=== PATIENT | male | born 1935 | race Caucasian/White ===

== ENCOUNTER 2022-05-25 08:38 | Inpatient (IN) ==
--- NOTE | 2022-05-07 09:54 | PAT Medication Instructions ---
Medication Instructions Date of Service May 07, 2022 Home Medications clopidogrel 75 mg tablet (Plavix) 75 mg PO QAM ramipril 10 mg capsule 10 mg PO QAM simvastatin 80 mg tablet 80 mg PO QAM ASK your prescriber and surgeon clopidogrel 75 mg tablet (Plavix) 75 mg PO QAM DO NOT take the morning of surgery ramipril 10 mg capsule 10 mg PO QAM Take morning of surgery With a small sip of water, OTHERWISE NOTHING TO EAT OR DRINK AFTER MIDNIGHT: simvastatin 80 mg tablet 80 mg PO QAM Other Notes If you have any questions please call us at [phone] or [phone] or [phone] or [phone]
--- NOTE | 2022-05-19 10:04 | Anesthesiology Consultation ---
Date of Service May 19, 2022 Assessment & Plan (1) Encounter for pre-operative examination: - COVID screening: Per assessment on 05/19: No known COVID-19 positive contacts or current COVID-19 related symptoms. Travel screen negative. Patient vaccinated. At surgeon discretion if preop Covid testing being done. - Neurology office visit (04/07/22): "Painless monocular vision loss to the right eye consistent with amaurosis fugax. Patient has significant bilateral carotid stenosis, right greater than left as depicted on CT angiography. I suspect the right carotid has been symptomatic. (He does have an audible bruit on the left.) Recently completed brain MRI reveals a small punctate infarct within the right occipital lobe, watershed between the right occipital and right MCA. This small acute to subacute appearing ischemic infarct would not explain his vision loss to the right eye, however. Patient has been taking Plavix and simvastatin, he should continue with these medications at the current dosages. He is also on ramipril and may continue with this medication as well. I have requested a fasting lipid panel as well. Patient should complete the requested cardiac Holter monitoring. I have referred him to Dr. Silverman, for an opinion regarding carotid endarterectomy. He does appear to have significant bilateral disease although the right carotid stenosis would be considered symptomatic recently. Looks like he has an appointment scheduled with Dr. Delgado tomorrow, cardiology, vascular. He may keep this appointment. Return to clinic in 3 months, may be seen by myself or an SANDRA at that time." Holter done 04/02-04/04/22 was unremarkable. Cardiovascular appt mentioned by PCP was when patient was initially scheduled [place] Shayy Fleming [place] [facility] [place]. [place]t was cancelled and patient was instead sent to Dr. Silverman for further vascular evaluation- resulting in setting up of this surgery* - Vascular office visit (04/15/22): "CTA in March demonstrated bilateral significant carotid artery stenosis more on the right than the left. He does have also evidence of watershed infarcts at right occipital lobe via brain MRI. Echo from March demonstrated an EF of 65 to 75% with hypokinesis to akinesis of the mid anterior septum. No LVH, trace of aortic regurgitation, mild mitral regurge, normal estimated right ventricular systolic pressure.. He is presenting with symptomatic (amaurosis fugax) severe right carotid disease. We extensively discussed the risks and benefits of proceeding with right carotid artery endarterectomy" Pt scheduled for right transcarotid artery revascularization 05/25/22* - Plavix instructions: Per patient, he was advised by surgeon to continue perioperative Chart Review Chart Review: Acceptable Risk for Surgery and Patient seen in Pre Admission Testing Teaching & Discussion Pre-Anesthesia Teaching/Discussion Notes: Instructed NPO after midnight before surgery,except medications with 15 cc of water. Medication instructions provided according to the PAT guidelines. History Surgery Operation Date: 05/25/22 10:50 Proposed Procedures p Right Transcarotid Artery Revascularization - Jose Alfredo Silverman MD Height/Weight Height: 5 ft 9 in Weight: 78 kg Allergies Allergy/AdvReac Type Severity Reaction Status Date / Time No Known Allergies Allergy Verified 05/06/22 11:56 Medications Home Medications Medication Instructions Recorded Confirmed Last Taken clopidogrel 75 mg tablet (Plavix) 75 mg PO QAM 05/06/22 05/06/22 Unknown ramipril 10 mg capsule 10 mg PO QAM 05/06/22 05/06/22 Unknown simvastatin 80 mg tablet 80 mg PO QAM 05/06/22 05/06/22 Unknown Past Medical History Medical History Amaurosis fugax of right eye "Painless monocular vision loss to the right eye consistent with amaurosis fugax" per 04/07/22 neuro office visit note Bilateral carotid artery stenosis Per head/neck CTA (03/31/22), hemodynamically significant stenosis in the right internal carotid artery its origin. There is hemodynamically significant stenosis in the left common carotid artery at the carotid bulb. There is likely hemodynamically significant stenosis in the origin of the right vertebral artery. CAD (coronary artery disease) Stents x2 (approximately 2009) Dysphagia Food/solids - chronic (no recent changes) Hypertension Recent meds started by PCP Occipital stroke Summer 2021 (reason for upcoming surgery) Brain MRI reveals a small punctate infarct within the right occipital lobe, watershed between the right occipital and right MCA. Exercise / Class Metabolic Activity II 4-5 Yardwork/Stairs/Walk up hill (one FS (no CP, no SOB)) Past Family History Family History Other No family history of adverse response to anesthesia Past Surgical History Surgical History History of cardiac cath Approximately 2009 > no stents History of colonoscopy History of esophagogastroduodenoscopy (EGD) + foreign body removal History of heart artery stent Stents x2 (approximately 2009) Past Anesthesia History No Hx of Anesthesia Complications and No Family Hx of Anesthesia Complications History of PONV No Hx of PONV and No Hx of Motion Sickness Social History Smoking Status: Never smoker Do You Dip or Chew Tobacco: No Hx Alcohol Use: Yes Alcohol type: beer alcohol intake frequency: 0-2 drinks per day (1 beer/day) Hx Substance Use: No substance use type: does not use Review of Systems Patient denies chest pain, shortness of breath, dyspnea on exertion, fever, chills, cough, wheezing, palpitations. Physical Exam Vital Signs VITALS BP 113/62 P 53 TEMP WNL SP02 97%RA RESP 18 PHYSICAL Mildly decreased cervical extension range of motion. Full TMJ range of motion. TMD 2 finger breaths (small chin) Mallampati Score 3 Dentition: full upper plate Lungs: clear throughout to auscultation Cardiac: regular rate and rhythm, no murmurs noted Spine: normal Carotid arteries: b/l carotid bruit Extremities: no edema Lab Results Anesthesia Preop Results Results Anesthesia Widget: WBC 6.58 K/ul (4.8-10.8) 05/19/22 Hgb 15.6 g/dl (14.0-18.0) 05/19/22 Hct 47.3 % (40.1-51.0) 05/19/22 Plt 202 K/uL (130-400) 05/19/22 Na 140 mmol/L (136-145) 05/19/22 K 4.2 mmol/L (3.5-5.1) 05/19/22 Cl 109 mmol/L (98-107) H 05/19/22 CO2 25 mmol/L (21-32) 05/19/22 BUN 20 mg/dl (6-23) 05/19/22 Creat 1.03 mg/dl (0.6-1.4) 05/19/22 Glucose Level 104 mg/dl (70-99(Fasting)) H 05/19/22 PT 11.1 Seconds (9.0-12.0) 05/19/22 PTT 29.3 Seconds (21.0-31.0) 05/19/22 INR 1.0 (0.9-1.1) 05/19/22 Blood Type A Positive 05/19/22 Antibody Screen NEGATIVE 05/19/22 Testing Electrocardiogram Date: 05/19/22 SB with sinus arrhythmia at 54bpm. unconfirmed report. Chest X-Ray Date: 05/19/22 FINDINGS: Cardiomediastinal and hilar silhouettes are within normal limits. No pneumothorax, pleural effusion, airspace consolidation or overt pulmonary edema. Hyperinflation with mild diaphragmatic flattening. Bridging syndesmophytes throughout the spine suggestive of ankylosing spondylosis. Bones appear grossly intact. IMPRESSION: No acute process. Echocardiogram Date: 04/02/22 EF 65-70%. HK to akinesis of the mid anteroseptum. No LVH. Mild MR. Normal estimated RVSP. Type I DD. Other Testing Head/Neck CTA (03/31/22) No acute intracranial hemorrhage, evidence of acute territorial infarction, or other acute intracranial disease process. Hemodynamically significant stenosis in the right internal carotid artery its origin. There is hemodynamically significant stenosis in the left common carotid artery at the carotid bulb. There is likely hemodynamically significant stenosis in the origin of the right vertebral artery. No occlusion, hemodynamically significant stenosis, or dissection in the major intracranial arteries. Brain MRI (04/06/22) Punctate focus of slightly increased diffusion-weighted signal within the right occipital lobe may be artifactual or present a tiny acute versus subacute in farct. Age-related involutional changes with chronic microvascular ischemic disease. 48 hour holter (04/02-04/04/22) NSR throughout. Rare PACs. Frequent PVCs (6%). One, 9 beat run of an SVT. No a. fib or flutter. COVID-19 Risk Screen Screening Information COVID-19 Screen Date: 05/19/22 Exposure 21 Days Family/Household +COVID Last 21 Days: No Exposure 10 Days Any COVID Exposure Last 10 Days: No Symptoms Last 10 Days Experienced COVID Sx Last 10 Days: No + COVID 0-90 Days COVID + in Last 0-90 Days: No
--- NOTE | 2022-05-25 07:28 | History & Physical Report ---
Date of Service May 25, 2022 History of Present Illness Primary Care Provider: Huseyin Devine DO Name: LILY WADE Patient Number: [id number] : 1935 Date of Service: 04/15/2022 Dear , I had the pleasure today of meeting Mr. Wade at the vascular surgery clinic with Dr. Silverman. As you are aware, he is a very pleasant 86-year-old male with history of hypertension, hyperlipidemia and CAD (status post 2 stents more than 10 years ago). He is for evaluation of carotid artery stenosis. Approximately 3 weeks ago, he noticed a black curtain over his right eye. At that time, he did not have any weakness or numbness or slurred speech. He does still have this black curtain on the right eye and he can only the lower half of the visual field by the right eye. He was worked up for stroke which came back involved with this severe bilateral carotid artery disease the CTA that is worse on the right side. 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 He is on Plavix. He is a non-smoker. He recently moved from [place] to the area few months ago but he has been back and forth. He is extremely active and lives by himself. He denies shortness of breath, claudication or rest pain. REVIEW OF SYSTEMS: 14 point ROS was performed, pertinent positive and negative aspects were mentioned in the HPI PAST MEDICAL HISTORY: CAD (2 stents >10 yrs ago), hypertension, hyperlipidemia, carotid stenosis, right PAST SURGICAL HISTORY: Coronary stents, colonoscopy SOCIAL HISTORY: Non-smoker, recently moved to [place] from [place], lives alone. FAMILY HISTORY: Noncontributory MEDICATIONS: Plavix, ramipril, simvastatin ALLERGIES: NKA PHYSICAL EXAM: VITALS: Heart rate 81, BP 108/52, satting 98% on room air GENERAL: Sitting comfortably in chair no acute distress CARDS: Regular PULM: Nonlabored breathing on room air ABDOMEN: Soft EXTREMITIES: Warm, well-perfused. 2+ radial pulse NEURO: cranial nerves II through XII are grossly intact. 5 out of 5 muscle strength in all muscle groups, And sensory function intact. He does endorse double vision at the central field. IMAGING: CTA in March demonstrated bilateral significant carotid artery stenosis more on the right than the left. He does have also evidence of watershed infarcts at right occipital lobe via Brain MRI. Echo from March demonstrated an EF of 65 to 75% with hypokinesis to akinesis of the mid anterior septum. No LVH, trace of aortic regurgitation, mild mitral regurge, normal estimated right ventricular systolic pressure. ASSESSMENT AND PLAN: Mr. Wade is an 86-year-old male with history of CAD, hypertension and hyperlipidemia. He is a presenting with symptomatic (amaurosis fugax) severe right carotid disease. We extensively discussed the risks and benefits of proceeding with right TCAR procedure. The patient was consented for the procedure. Thank you for entrusting us with the care of this patient. Please do not hesitate to call us with questions or concerns. I saw and evaluated the patient. Discussed with the resident and agree with the resident's findings and plan as documented in the resident's note. Allergies Allergy/AdvReac Type Severity Reaction Status Date / Time No Known Allergies Allergy Verified 05/06/22 11:56 Home Medications Medication Instructions Recorded Confirmed Type clopidogrel 75 mg tablet (Plavix) 75 mg PO QAM 05/06/22 05/06/22 History ramipril 10 mg capsule 10 mg PO QAM 05/06/22 05/06/22 History simvastatin 80 mg tablet 80 mg PO QAM 05/06/22 05/06/22 History Past Med/Surg History Medical History Amaurosis fugax of right eye "Painless monocular vision loss to the right eye consistent with amaurosis fugax" per 04/07/22 neuro office visit note Bilateral carotid artery stenosis Per head/neck CTA (03/31/22), hemodynamically significant stenosis in the right internal carotid artery its origin. There is hemodynamically significant stenosis in the left common carotid artery at the carotid bulb. There is likely hemodynamically significant stenosis in the origin of the right vertebral artery. CAD (coronary artery disease) Stents x2 (approximately 2009) Dysphagia Food/solids - chronic (no recent changes) Hypertension Recent meds started by PCP Occipital stroke Summer 2021 (reason for upcoming surgery) Brain MRI reveals a small punctate infarct within the right occipital lobe, watershed between the right occipital and right MCA. Surgical History History of cardiac cath Approximately 2009 > no stents History of colonoscopy History of esophagogastroduodenoscopy (EGD) + foreign body removal History of heart artery stent Stents x2 (approximately 2009) Family History Other No family history of adverse response to anesthesia Social History Smoking Status: Never smoker Second Hand Exposure: No; Hx Alcohol Use: Yes Alcohol type: beer Alcohol Intake Frequency Comment: 1 beer a day Hx Substance Use: No Preferred Language: Icelandic Communication Ability: Effective Visual Impairment: Limited Hearing Ability: Use of Hearing Aid Certified Genetic Counselor Required: No Beliefs That Will Affect Care: None marital status: / Current Living Situation: Alone current occupational status: retired How many Children do You have: 1 Feels Safe at Home: Yes Assistive Devices: Denture - Upper, Glasses and Hearing Aid - Bilateral
[~2022-05-25 08:38] MED LIST: ALBUMIN HUMAN 5% 12.5 GM/250 ML VIAL IV ONE; LACTATED RINGER'S 1,000 ML IV SCH; SUGAMMADEX SODIUM 200 MG/2 ML VIAL IV ONE; ceFAZolin 1000MG 1,000 MG/7.5 ML SYR IV SCH
[2022-05-25] MEDS ORDERED: LIDOCAINE 2% MPF LOCAL 5 ML VIAL INFIL ONE ×2 (08:41→09:39)
[2022-05-25] MEDS ORDERED: fentaNYL citrate 100 MCG/2 ML VIAL ONE ×2 (09:36→12:25)
[2022-05-25] MEDS ORDERED: MIDAZOLAM HCL 1 MG/ML 2ML VIAL ONE (09:36)
[2022-05-25] MEDS ORDERED: PHENYLEPHRINE HCL 10 MG/ML VIAL ONE (09:38)
[2022-05-25] MEDS ORDERED: ePHEDrine sulfate 50 MG/ML AMP ONE (09:38)
[2022-05-25] MEDS ORDERED: PROPOFOL IV EMULSION 10 MG/ML 20 ML VIAL IV ONE (09:39)
[2022-05-25] MEDS ORDERED: ROCURONIUM BROMIDE 10 MG/ML 5 ML VIAL IV ONE ×2 (09:39→12:25)
[2022-05-25] MEDS ORDERED: GLYCOPYRROLATE 0.2 MG/ML VIAL ONE (09:39)
[2022-05-25] MEDS ORDERED: DEXAMETHASONE SOD INJ 4 MG/ML VIAL ONE (09:39)
[2022-05-25] MEDS ORDERED: ONDANSETRON INJ 2 MG/ML 2 ML VIAL ONE (09:39)
[2022-05-25] MEDS ORDERED: ATROPINE SULFATE 0.1 MG/ML 10ML SYR IV PRN (09:47)
[2022-05-25] MEDS ORDERED: ePHEDrine sulfate 50 MG/ML AMP IV PRN (09:47)
[2022-05-25] MEDS ORDERED: ONDANSETRON INJ 2 MG/ML 2 ML VIAL IV PRN (09:47)
[2022-05-25] MEDS ORDERED: LIDOCAINE 1% LOCAL 20 ML VIAL ONE (10:14)
--- NOTE | 2022-05-25 10:25 | History & Physical Bridge Note ---
Date of Service May 25, 2022 History & Physical Bridge Note Patient for trans carotid artery revascularization procedure of the right carotid. I have discussed the risks options and benefits of the procedure with the patient. The patient understands the risks options and benefits and agrees to the procedure. I have examined the patient, reviewed the History & Physical and in the interval since the performance of the History & Physical I have noted the following changes of clinical significance: no changes noted
[2022-05-25] MEDS ORDERED: HEPARIN SOD (PORCINE) 1000 UNIT/ML ONE (10:32)
[2022-05-25] MEDS ORDERED: VISIPAQUE IV ONE (12:25)
[2022-05-25] MEDS ORDERED: PROTAMINE SULFATE 10 MG/ML 5 ML VIAL ONE (12:27)
--- NOTE | 2022-05-25 12:38 | Post Operative Brief Note ---
Immediate Post Op Note v1 Date of Surgery May 25, 2022 Pre & Post Diagnosis Operation Date: 05/25/22 10:50 Pre-Op Diagnosis: Right Internal Carotid Artery Stenosis Post-Op Diagnosis: Right Internal Carotid Artery Stenosis I identified the patient and participated in the time-out.: Yes Procedure Operation Date: 05/25/22 10:50 Actual Procedures p Right Transcarotid Artery Revascularization(Right) - Jose Alfredo Silverman MD Surgeon Jose Alfredo Silverman MD Physician Practice Market Manager Laurie,PAC Estimated Blood Loss 50 Findings Consistent with Post-Op Diagnosis Anesthesia Type General Complications none Disposition Accompanied Patient To Recovery: No Disposition: Recovery Room
[2022-05-25] MEDS: fentaNYL citrate 100 MCG/2 ML VIAL IV PRN ×4 (13:13→14:17)
--- NOTE | 2022-05-25 14:22 | Anesthesiology Progress Note ---
Date of Service May 25, 2022 Anesthesia Post Procedure Vital Signs Vital Signs: Temp Pulse Pulse Resp BP Pulse Ox O2 Del Method 05/25/22 13:30 62 12 148/61 H 95 Room Air 05/25/22 13:20 65 12 147/62 H 95 Room Air 05/25/22 14:10 60 16 132/53 L 98 Room Air 05/25/22 14:00 70 14 144/59 H 96 Room Air 05/25/22 13:50 98.2 F 62 13 137/58 L 96 Room Air 05/25/22 13:40 62 12 149/65 H 95 Room Air 05/25/22 13:10 73 18 144/59 H 100 Oxymask 05/25/22 13:03 97.0 F L 76 18 140/65 100 Oxymask 05/25/22 09:25 97.7 F 68 20 129/73 97 Room Air O2 Flow Rate 05/25/22 13:30 05/25/22 13:20 05/25/22 14:10 05/25/22 14:00 05/25/22 13:50 05/25/22 13:40 05/25/22 13:10 5 05/25/22 13:03 5 05/25/22 09:25 Pain Intensity Right Chest: Pain Intensity: 4 Transfer of Care Handoff Completed per policy Notes Mental Status: alert / awake / arousable and participated in evaluation Patient Amnestic to Procedure: Yes Nausea / Vomiting: adequately controlled Pain: adequately controlled Airway Patency, RR, SpO2: stable & adequate BP & HR: stable & adequate Hydration State: stable & adequate Anesthetic Complications: no major complications apparent and Pt Satisfied with anesthetic care
[2022-05-25] MEDS ORDERED: oxyCODONE/ACETAMINOPHEN 5mg/325mg TAB PO PRN (15:09)
--- NOTE | 2022-05-25 15:42 | Billing Data ---
Date of Service May 25, 2022 Coding Level of Care Code 53497 Initial Inpt Care Lvl 2
--- NOTE | 2022-05-25 15:54 | Critical Care Consultation ---
Date of Consultation May 25, 2022 Assessment & Plan (1) Bilateral carotid artery stenosis: ICU Assessment and Plans Reason Critically Ill: 86-year-old male here with a PMHx significant for occipital stroke, b/l carotid artery stenosis, HLD, HTN, dysphagia, CAD stentx2 who presented to the hospital for right carotid artery stenosis TCAR with vascular surgery. Neuro - [facility] ICU: NEGATIVE Sedation: none Analgesia: Oxycodone 5mg q4hr PRN, morphine 2mg IV PRN q3rn for pain 1-5, morphine 4mg IV q3hr PRN for pain 6-10 Hx Occipital stroke -continue simvastatin 80mg Cardiac - s/p TCAR of right carotid artery -following with vascular surgery -maintain systolic BP above 120 -if blood pressure below that, consider gera synephrine CAD s/p stentx2 -continue enalapril 40mg -continue plavix 75mg Respiratory - No concerns at this time. GI - Dysphagia -Clear liquid heart healthy diet -patient may refuse solid medications RENAL/LYTES - No significant electrolyte derangement. Replace lytes as needed. - No concerns at this time. ENDO - No concerns at this time. HEME - Will monitor for any bleeds ID - -continue ancef 3 bags post TCAR procedure INTEGUMENTARY - -keep incision site clean dry intact LINES/IV ACCESS - PIVs intact. -LR 125mls/hr DVT PROPHYLAXIS - -continue plavix Thank you for allowing us to be part of this patient's care. Please refer to Dr. Rosenberg's documentation for any further recommendations. (2) CAD (coronary artery disease): (3) Hypertension: Supervising Physician Co-Signing Physician Notes Patient seen and examined with resident physician. Agree with assessment and plan as outlined above. Can likely be discharged home tomorrow. Will defer plan to vascular surgery. Critical care team is available should the need arise. Thank you for the consult. History of Present Illness Reason for Consultation: Post TCAR procedure Requesting Physician: Jose Alfredo Silverman MD Attending Physician: Narayan Rosenberg MD History of Present Illness 86yo Male with PMH occipital stroke and b/l carotid artery stenosis found 3 weeks ago, CAD with stentsx2 over 10 years ago, HLD, HTN and dysphagia presented to the hospital for scheduled right TCAR with vascular surgery. Patient states 3 weeks ago he felt a loss of vision in his right eye, like a curtain descended over the top half of his vision. He was sent to the hospital for a stroke work up, found to have an occipital stroke and b/l carotid artery stenosis. At this time post procedure he states he is feeling well, denies headache CP SOB, states he has intact movement sensation of all limbs. He states he does have a 5/10 pain in his neck. Patient has ongoing dysphagia usually eats a soft diet, states he has long periods of coughs when eating harder solids and is afraid of taking oral tablet pain medication for this reason. He states he is afraid of coughing so hard his stitches will open. Patient plans to avoid eating food tonight for this reason. He has not had a bowel movement in 1 day, usually has bowel movements every 2 days. He plans to have a second TCAR for his left carotid after this one heals, with an EGD planned afterwards for his dysphagia. Allergies Allergy/AdvReac Type Severity Reaction Status Date / Time No Known Allergies Allergy Verified 05/25/22 09:22 Home Medications Medication Instructions Recorded Confirmed Type clopidogrel 75 mg tablet (Plavix) 75 mg PO QAM 05/06/22 05/25/22 History ramipril 10 mg capsule 10 mg PO QAM 05/06/22 05/25/22 History simvastatin 80 mg tablet 80 mg PO QAM 05/06/22 05/25/22 History Patient History Medical History (Updated 05/25/22 @ 15:52 by Sol Duque DO) Amaurosis fugax of right eye "Painless monocular vision loss to the right eye consistent with amaurosis fugax" per 04/07/22 neuro office visit note Bilateral carotid artery stenosis Per head/neck CTA (03/31/22), hemodynamically significant stenosis in the right internal carotid artery its origin. There is hemodynamically significant stenosis in the left common carotid artery at the carotid bulb. There is likely hemodynamically significant stenosis in the origin of the right vertebral artery. CAD (coronary artery disease) Stents x2 (approximately 2009) Dysphagia Food/solids - chronic (no recent changes) Hypertension Recent meds started by PCP Occipital stroke Summer 2021 (reason for upcoming surgery) Brain MRI reveals a small punctate infarct within the right occipital lobe, watershed between the right occipital and right MCA. Surgical History History of cardiac cath Approximately 2009 > no stents History of colonoscopy History of esophagogastroduodenoscopy (EGD) + foreign body removal History of heart artery stent Stents x2 (approximately 2009) Family History Other No family history of adverse response to anesthesia Social History Smoking Status: Never smoker Second Hand Exposure: No; Do You Dip or Chew Tobacco: No; Tobacco Cessation Education Requested by Patient: No Hx Alcohol Use: Yes Alcohol type: beer Alcohol Intake Frequency Comment: 1 beer a day Hx Substance Use: No Preferred Language: Bulgarian Communication Ability: Effective Visual Impairment: Limited Hearing Ability: Use of Hearing Aid Judge Required: No Beliefs That Will Affect Care: None marital status: / Current Living Situation: Alone current occupational status: retired How many Children do You have: 1 Other Information That Helps Us Care for You: No Feels Safe at Home: Yes Safety Concerns: Feels Safe At This Time Assistive Devices: Denture - Upper, Glasses and Hearing Aid - Bilateral Review of Systems Review of Systems: Positive sore throat, constipation Negative fever chills Negative headache dizziness Negative chest pain palpitations SOB Negative nausea vomitting diarrhea Negative numbness tingling rash swelling weakness loss of sensation Physical Exam Constitutional: WD/WN, vitals as above Eyes: PERRL, conjunctivae normal, anicteric sclerae ENMT: external ear and nose normal, oropharynx normal Neck: trachea midline, no thyromegaly Respiratory: normal respiratory effort, lungs clear to auscultation Cardiovascular: RRR, no murmur, no edema Chest (Breasts): Additional Comments: incision noted around right clavicle, clean dry intact Gastrointestinal (Abdomen): normal bowel sounds, soft, nontender, no hepatosplenomegaly Skin: no rashes, warm and dry Neurologic: CN's II-XI intact bilaterally Psychiatric: A+Ox3, euthymic affect Results & Data Results & Data ([facility]) Vital Signs (Past 12 Hours) Vital Signs Temp Pulse Pulse Resp BP Pulse Ox O2 Del Method 05/25/22 13:30 62 12 148/61 H 95 Room Air 05/25/22 13:20 65 12 147/62 H 95 Room Air 05/25/22 14:30 56 L 14 132/52 L 98 Room Air 05/25/22 14:20 36.4 C L 66 21 131/25 L 98 Room Air 05/25/22 14:10 60 16 132/53 L 98 Room Air 05/25/22 14:00 70 14 144/59 H 96 Room Air 05/25/22 13:50 36.8 C 62 13 137/58 L 96 Room Air 05/25/22 13:40 62 12 149/65 H 95 Room Air 05/25/22 13:10 73 18 144/59 H 100 Oxymask 05/25/22 13:03 36.1 C L 76 18 140/65 100 Oxymask 05/25/22 09:25 36.5 C 68 20 129/73 97 Room Air O2 Flow Rate 05/25/22 13:30 05/25/22 13:20 05/25/22 14:30 05/25/22 14:20 05/25/22 14:10 05/25/22 14:00 05/25/22 13:50 05/25/22 13:40 05/25/22 13:10 5 05/25/22 13:03 5 05/25/22 09:25 Laboratory Results 05/25/22 05/25/22 Range/Units 11:26 09:09 Activ Coag Time Kaolin 289 H (94-140) SECONDS SARS-CoV-2, RNA, NAAT NEGATIVE (NEGATIVE) Medications Administered Current Inpatient Medications Clopidogrel Bisulfate (Clopidogrel Bisulfate 75 Mg Tab) 75 mg PO QAM RORY Stop: 06/25/22 08:59 Enalapril Maleate (Enalapril Maleate 10 Mg Tab) 40 mg PO QAM RORY; Protocol Stop: 06/25/22 08:59 Lactated Ringer's (Lr) 1,000 mls @ 80 mls/hr IV .[id number] RORY Stop: 05/25/22 18:29 Last Infusion: 05/25/22 10:47 Dose: Infused Cefazolin Sodium (Ancef 1000mg) 1,000 mg in 7.5 mls @ 2.5 mls/min IV PREOP RORY; Protocol Stop: 05/25/22 18:00 Last Admin: 05/25/22 10:47 Dose: 2.5 mls/min Cefazolin Sodium (Ancef 1000mg) 1,000 mg in 7.5 mls @ 2.5 mls/min IV Q8H [facility]; Protocol Stop: 05/26/22 03:02 Lactated Ringer's (Lr) 1,000 mls @ 125 mls/hr IV .Q8H RORY Stop: 06/24/22 15:08 Last Admin: 05/25/22 16:01 Dose: 125 mls/hr Morphine Sulfate (Morphine Sulfate 2 Mg/Ml Carp) 2 mg IV Q3H PRN PRN Reason: Pain (1,2,3,4,5) & Pre PT Stop: 06/08/22 17:46 Morphine Sulfate (Morphine Sulfate 4 Mg/Ml 1 Ml Carp\\Vial) 4 mg IV Q3H PRN PRN Reason: Pain (6,7,8,9,10) Stop: 06/08/22 17:46 Oxycodone/Acetaminophen (Oxycodone/Acetaminophen 5mg/325mg Tab) 1 - 2 tab PO Q4H PRN PRN Reason: Moderate Pain Stop: 06/08/22 15:08 Simvastatin (Sim[facility]atin 80 Mg Tab) [facility] Stop: 06/25/22 08:59 Resident Activity Tracking Resident Involvement: Resident Care Provided Care Provided: Adult Hospital Medicine
[2022-05-25] MEDS: LACTATED RINGER'S 1,000 ML IV SCH ×2 (16:01→23:46)
[2022-05-25] MEDS ORDERED: MoRPHine SULFATE 4 MG/ML 1 ML CARP\\VIAL IV PRN (17:47)
[2022-05-25] MEDS: MoRPHine SULFATE 2 MG/ML CARP IV PRN (17:57)
[2022-05-25] MEDS: ceFAZolin 1000MG 1,000 MG/7.5 ML SYR IV SCH ×2 (19:17→20:04)
[2022-05-26] MEDS: ceFAZolin 1000MG 1,000 MG/7.5 ML SYR IV SCH (02:10)
[2022-05-26] MEDS: MoRPHine SULFATE 2 MG/ML CARP IV PRN (03:42)
[2022-05-26] MEDS: LACTATED RINGER'S 1,000 ML IV SCH ×2 (07:18→08:53)
--- NOTE | 2022-05-26 08:15 | Critical Care Progress Note ---
Date of Service May 26, 2022 Assessment & Plan (1) Bilateral carotid artery stenosis: Plan: ICU Assessment and Plans Reason Critically Ill: 86-year-old male here with a PMHx significant for occipital stroke, b/l carotid artery stenosis, HLD, HTN, dysphagia, CAD stentx2 who presented to the hospital for right carotid artery stenosis TCAR with vascular surgery. Neuro - [facility] ICU: NEGATIVE Sedation: none Analgesia: Oxycodone 5mg q4hr PRN, morphine 2mg IV PRN q3rn for pain 1-5, morphine 4mg IV q3hr PRN for pain 6-10 Hx Occipital stroke -continue simvastatin 80mg Cardiac - s/p TCAR of right carotid artery -following with vascular surgery -maintain systolic BP above 100 -if blood pressure below that, consider gera synephrine CAD s/p stentx2 -continue enalapril 40mg -continue plavix 75mg Respiratory - No concerns at this time. GI - Dysphagia -Clear liquid heart healthy diet -patient may have difficulty with solid medications RENAL/LYTES - No significant electrolyte derangement. Replace lytes as needed. - No concerns at this time. ENDO - No concerns at this time. HEME - Will monitor for any bleeds ID - -completed ancef 3 bags post TCAR procedure INTEGUMENTARY - -keep incision site clean dry intact LINES/IV ACCESS - PIVs intact. -LR 125mls/hr DVT PROPHYLAXIS - -continue plavix Thank you for allowing us to be part of this patient's care. Please refer to Dr. Rosenberg's documentation for any further recommendations. (2) CAD (coronary artery disease): (3) Hypertension: Admission and Anticipated Discharge Date Admission Date: May 25, 2022 Supervising Physician Co-Signing Physician Notes Patient seen and examined with resident physician. Agree with assessment and plan as outlined above. Patient to be discharged by vascular surgical team. He does have chronic dysphagia. Will need a GI evaluation as an outpatient with possible scope. Constitutional: Patient appears to be of their stated age. Patient is in no apparent distress. Patient is well-developed. Eyes: Pupils are equal round and reactive to light. Conjunctivae are normal. Anicteric sclera. Ears nose, mouth and throat: Deferred. Neck: Trachea is midline. Visual inspection is normal. Respiratory: Clear to auscultation bilaterally. No use of accessory muscles. No significant clubbing noted. Cardiovascular: Regular rate and rhythm. No murmurs. No edema. Gastrointestinal: Normal bowel sounds, soft, nontender and nondistended. No hepatosplenomegaly noted. Musculoskeletal: No cyanosis. Patient is able to move all extremities. Strength is 5 out of 5 in the upper and lower extremities. Skin: No rashes, warm dry and intact. Neurologic: No obvious focal neurological deficits seen. Psychiatric: Alert and oriented x3 with a euthymic affect. Subjective Patient seen at bedside, calm comfortable cooperative, states his neck pain is well controlled, tolerating clear liquid diet well no coughing vomitting choking. He denies any SOB headache dizziness, no changes in his vision overnight. Patient states he is feeling well, wonders when he can go home. Review of Systems Review of Systems: Positive constipation Negative fever chills Negative headache dizziness Negative chest pain palpitations SOB Negative nausea vomitting diarrhea Negative numbness tingling rash swelling weakness loss of sensation Physical Exam Constitutional: WD/WN, vitals as above Eyes: PERRL, conjunctivae normal, anicteric sclerae ENMT: external ear and nose normal, oropharynx normal Neck: trachea midline, no thyromegaly Respiratory: normal respiratory effort, lungs clear to auscultation Cardiovascular: RRR, no murmur, no edema Gastrointestinal (Abdomen): normal bowel sounds, soft, nontender, no hepatosplenomegaly Musculoskeletal: wrist brace on left wrist Skin: no rashes, warm and dry Neurologic: CN's II-XI intact bilaterally Psychiatric: A+Ox3, euthymic affect Results & Data Results & Data ([facility]) Vital Signs (Past 12 Hours) Vital Signs Temp Pulse Resp BP Pulse Ox O2 Del Method 05/26/22 06:30 47 L 14 96 05/26/22 06:00 59 L 27 H 92 05/26/22 05:30 50 L 16 94 05/26/22 05:00 45 L 15 93 05/26/22 04:30 48 L 16 92 05/26/22 04:00 47 L 15 89 L 05/26/22 04:00 115/55 L 05/26/22 04:00 46 L 107/38 L 05/26/22 00:05 36.9 C 05/26/22 03:30 47 L 16 92 05/26/22 03:00 54 L 16 91 05/26/22 03:00 118/54 L 05/26/22 02:30 49 L 17 94 05/26/22 03:39 36.9 C 05/26/22 02:00 47 L 16 92 05/26/22 02:00 102/56 L 05/26/22 01:30 51 L 20 95 05/26/22 01:00 50 L 26 H 92 05/26/22 00:30 48 L 10 L 94 05/26/22 00:30 108/49 L 05/26/22 00:01 55 L 16 94 05/26/22 00:01 111/54 L 05/26/22 00:00 53 L 17 05/25/22 23:31 61 20 96 05/25/22 23:31 132/72 05/25/22 23:30 76 22 88 L 05/25/22 23:00 49 L 16 93 05/25/22 22:30 52 L 16 93 05/25/22 22:30 105/54 L 05/26/22 00:00 49 L 100/40 L 05/26/22 00:00 51 L 05/25/22 22:00 53 L 16 92 05/25/22 22:00 108/50 L 05/25/22 21:30 52 L 15 91 05/25/22 21:30 104/51 L 05/25/22 21:16 121/63 05/25/22 21:16 55 L 18 98 05/25/22 20:30 52 L 20 109/52 L 93 Room Air 05/25/22 20:16 70 16 111/57 L 96 Resident Activity Tracking Resident Involvement: Resident Care Provided Care Provided: Adult Hospital Medicine
[2022-05-26] MEDS: ENALAPRIL MALEATE 10 MG TAB PO SCH ×2 (08:53→08:55)
[2022-05-26] MEDS ORDERED: CLOPIDOGREL BISULFATE 75 MG TAB PO SCH (09:00)
[2022-05-26] MEDS ORDERED: SIMVASTATIN 80 MG TAB PO SCH (09:00)
--- NOTE | 2022-05-26 11:44 | Surgery Progress Note ---
Date of Service May 26, 2022 Assessment & Plan (1) Stenosis of carotid artery: Plan: Patient underwent uneventful TCAR of the right carotid. Doing well post op D/C today. Admission and Anticipated Discharge Date Admission Date: May 25, 2022 Subjective Patient up in chair eating. No complaints today. Physical Exam Constitutional: WD/WN, vitals as above Neck: trachea midline Respiratory: normal respiratory effort; no respiratory distress Cardiovascular: Rate/Rhythm: regular rate and regular rhythm Musculoskeletal: no cyanosis or clubbing, extremities motor strength 5/5 Neurologic: CN's II-XI intact bilaterally and moves all extremities Psychiatric: Orientation: alert and oriented x 3 Results & Data ([facility]) Vital Signs (Past 12 Hours) Vital Signs Temp Pulse Resp BP Pulse Ox 05/26/22 10:30 45 L 18 99 05/26/22 10:00 48 L 19 94 05/26/22 09:30 46 L 17 99 05/26/22 08:00 36.6 C 05/26/22 09:00 51 L 17 97 05/26/22 08:00 50 L 17 95 05/26/22 07:00 49 L 15 93 05/26/22 06:30 47 L 14 96 05/26/22 06:00 59 L 27 H 92 05/26/22 05:30 50 L 16 94 05/26/22 05:00 45 L 15 93 05/26/22 04:30 48 L 16 92 05/26/22 04:00 47 L 15 89 L 05/26/22 04:00 115/55 L 05/26/22 04:00 46 L 107/38 L 05/26/22 00:05 36.9 C 05/26/22 03:30 47 L 16 92 05/26/22 03:00 54 L 16 91 05/26/22 03:00 118/54 L 05/26/22 02:30 49 L 17 94 05/26/22 03:39 36.9 C 05/26/22 02:00 47 L 16 92 05/26/22 02:00 102/56 L 05/26/22 01:30 51 L 20 95 05/26/22 01:00 50 L 26 H 92 05/26/22 00:30 48 L 10 L 94 05/26/22 00:30 108/49 L 05/26/22 00:01 55 L 16 94 05/26/22 00:01 111/54 L 05/26/22 00:00 53 L 17 05/26/22 00:00 49 L 100/40 L 05/26/22 00:00 51 L
--- NOTE | 2022-05-26 13:54 | Billing Data ---
Date of Service May 26, 2022 Coding Level of Care Code 40471 Subseq Hosp Care Lvl 2
--- NOTE | 2022-05-28 08:17 | Discharge Summary ---
Date of Service May 28, 2022 Admission HPI Per Admitting Provider Name: JOSE ALFREDO WADE Patient Number: [id number] : 1935 Date of Service: 04/15/2022 Dear , I had the pleasure today of meeting Mr. Wade at the vascular surgery clinic with Dr. Silverman. As you are aware, he is a very pleasant 86-year-old male with history of hypertension, hyperlipidemia and CAD (status post 2 stents more than 10 years ago). He is for evaluation of carotid artery stenosis. Approximately 3 weeks ago, he noticed a black curtain over his right eye. At that time, he did not have any weakness or numbness or slurred speech. He does still have this black curtain on the right eye and he can only the lower half of the visual field by the right eye. He was worked up for stroke which came back involved with this severe bilateral carotid artery disease the CTA that is worse on the right side. 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 He is on Plavix. He is a non-smoker. He recently moved from [place] to the area few months ago but he has been back and forth. He is extremely active and lives by himself. He denies shortness of breath, claudication or rest pain. REVIEW OF SYSTEMS: 14 point ROS was performed, pertinent positive and negative aspects were mentioned in the HPI PAST MEDICAL HISTORY: CAD (2 stents >10 yrs ago), hypertension, hyperlipidemia, carotid stenosis, right PAST SURGICAL HISTORY: Coronary stents, colonoscopy SOCIAL HISTORY: Non-smoker, recently moved to [place] from [place], lives alone. FAMILY HISTORY: Noncontributory MEDICATIONS: Plavix, ramipril, simvastatin ALLERGIES: NKA PHYSICAL EXAM: VITALS: Heart rate 81, BP 108/52, satting 98% on room air GENERAL: Sitting comfortably in chair no acute distress CARDS: Regular PULM: Nonlabored breathing on room air ABDOMEN: Soft EXTREMITIES: Warm, well-perfused. 2+ radial pulse NEURO: cranial nerves II through XII are grossly intact. 5 out of 5 muscle strength in all muscle groups, And sensory function intact. He does endorse double vision at the central field. IMAGING: CTA in March demonstrated bilateral significant carotid artery stenosis more on the right than the left. He does have also evidence of watershed infarcts at right occipital lobe via Brain MRI. Echo from March demonstrated an EF of 65 to 75% with hypokinesis to akinesis of the mid anterior septum. No LVH, trace of aortic regurgitation, mild mitral regurge, normal estimated right ventricular systolic pressure. ASSESSMENT AND PLAN: Mr. Wade is an 86-year-old male with history of CAD, hypertension and hyperlipidemia. He is a presenting with symptomatic (amaurosis fugax) severe right carotid disease. We extensively discussed the risks and benefits of proceeding with right TCAR procedure. The patient was consented for the procedure. Thank you for entrusting us with the care of this patient. Please do not hesitate to call us with questions or concerns. I saw and evaluated the patient. Discussed with the resident and agree with the resident's findings and plan as documented in the resident's note. Admission Exam Per Admitting Provider VITALS: Heart rate 81, BP 108/52, satting 98% on room air GENERAL: Sitting comfortably in chair no acute distress CARDS: Regular PULM: Nonlabored breathing on room air ABDOMEN: Soft EXTREMITIES: Warm, well-perfused. 2+ radial pulse NEURO: cranial nerves II through XII are grossly intact. 5 out of 5 muscle strength in all muscle groups, And sensory function intact. He does endorse double vision at the central field. Principal Diagnosis 1. s/p Trans Carotid Artery Revascularization 2. severe R ICA Stenosis Discharge Exam Constitutional WD/WN, vitals as above Neck trachea midline Respiratory normal respiratory effort; no respiratory distress Cardiovascular Rate/Rhythm: regular rate and regular rhythm Musculoskeletal no cyanosis or clubbing, extremities motor strength 5/5 Neurologic CN's II-XI intact bilaterally and moves all extremities Psychiatric Orientation: alert and oriented x 3 Discharge Data Allergies Allergy/AdvReac Type Severity Reaction Status Date / Time No Known Allergies Allergy Verified 05/25/22 09:22 Consultations 05/25/22 15:09 Consult Bean Sprout Laborer Routine Procedures Performed Operation Date: 05/25/22 10:50 Actual Procedures p Right Transcarotid Artery Revascularization(Right) - Jose Alfredo Silverman MD Ordered Studies 05/25/22 EV angio carotid cerv RT Routine 05/25/22 09:59 US EV guide vascular access Routine 05/25/22 10:02 US guide vascular access Stat Hospital Course (1) Stenosis of carotid artery: Patient underwent uneventful TCAR of the right carotid. Doing well post op day #1. D/C home today. Total Time Total Time Spent Total Time Spent (In Minutes): 0 Discharge Plan Discharge Items Patient Disposition: Home - Self-Care Reason For Visit: Right Internal Carotid Artery Stenosis Discharge Diagnosis: Right carotid stenosis. Post TCAR Activity: Per Instructions section Non-emergency contact: Surgeon Call non-emergency contact if: your temperature is above 101.5, your wound has increased redness, your wound has increased drainage and your wound pain has increased Follow-up/Referrals: Huseyin Devine DO [Primary Care Provider] - 06/04/22 11:30 am Diet: Heart Healthy Addtl Attending Provider Instructions: SPECIAL CARE INSTRUCTIONS: Medications: * Continue to take Aspirin as directed. Incision Care: * You may shower, but do not rub incision. You may let the warm soapy water run over it. Be sure to dry the incision well after bathing. * Do not shave directly over the incision until it is healed. * DO NOT IMMERSE THE INCISION IN A TUB/POOL/etc. UNTIL HEALED. Restrictions: * Do not drive for at least one week or if you are still taking any narcotic pain medication. * Do not lift anything heavier than a gallon of milk for one week after going home. Possible Complications: * Numbness - It is normal to have some numbness around the incision. Numbness can extend beyond the incision to areas of the neck, ear and face. The numbness is due to bruising of nerves during the surgery and will gradually improve over a period of months. * Hoarseness/Difficulty Speaking and Swallowing - The bruising of nerves in the neck can also cause a hoarse voice, difficulty speaking or swallowing. This may improve over time, HOWEVER, if it continues for more than a few days please contact our office ([phone]). * Excessive Swelling - There will be some swelling immediately after surgery which usually resolves within one week. If you notice that the swelling is getting worse, notify your surgeon ([phone]). * Drainage/Bleeding - If there is any drainage or bleeding, it should be a very small amount (less than a teaspoon per day). If you have excessive bleeding or drainage from the incision, call your surgeon ([phone]) right away. ACTIVATION OF EMERGENCY MEDICAL SYSTEM: Call 911, immediately, if you experience any of the following: Warning Signs and Symptoms of Stroke: * Sudden numbness or weakness of the face, arm or leg, especially on one side of the body * Sudden confusion, trouble speaking or understanding * Sudden trouble seeing in one or both eyes * Sudden trouble walking, dizziness, loss of balance or coordination * Sudden severe headache with no cause Do not delay calling 911 if you experience any warning signs or symptoms of a stroke. Delay in seeking medical attention may affect what treatments can be given to you. Risk Factors for Stroke: You can reduce your chances of stroke by working with your medical provider to adopt a healthy lifestyle. Some specific ways to lower your chance of stroke are: * If you are a smoker, now is the time to stop smoking cigarettes * If you are diabetic, improve the control of your blood sugars * Avoid excessive amounts of alcohol * Control high blood pressure * Lose weight if you are overweight * Be sure to lead an active lifestyle * Eat a healthy diet low in salt, cholesterol and fat You should know about other risk factors for stroke that you are unable to control. These include: * Age 55 years or older * Male gender * Certain racial groups: , or / * Family History of Stroke, Mini stroke or Heart Attack * Sickle Cell Disease You will be receiving a call from the Vascular Surgery Nurse after you are discharged. FOLLOW UP VISIT: It is important for you to keep your follow up appointments with your medical provider. Keep any scheduled doctor appointments. Call [phone] to schedule a follow up appointment if one not already scheduled. Pending Studies at Discharge: No Stand-Alone Forms: My [facility], Smoking Cessation Medications and DC Order Prescriptions: New oxycodone-acetaminophen [Percocet] 5-325 mg tablet 1 tab PO Q8H PRN (Reason: pain) Qty: 10 0RF Continued clopidogrel [Plavix] 75 mg tablet 75 mg PO QAM simvastatin 80 mg tablet 80 mg PO QAM ramipril 10 mg capsule 10 mg PO QAM Discharge Orders: Discharge Order (Routine); Ordered 05/26/22 Ordered By: Jose Alfredo Silverman Admission Data Admit Date/Time: 05/25/22 10:25 Attending Provider: Jose Alfredo Silverman Admit Provider: Jose Alfredo Silverman Primary Care Provider: Huseyin Devine Other Providers: Zeke Rice ; Huseyin Thomas ; Matheus Marcum ; Narayan Rosenberg ; Gage Butcher ; Miguel Carr ; Sergio Wilkerson ; Reg Lazcano ; Shae Garrett Other Interventions: Discharge Summary Assessment (RN) Last Done: 05/26/22 12:22
--- NOTE | 2022-06-03 07:41 | Procedure Note ---
Post Operative Report Pre & Post Diagnosis Operation Date: 05/25/22 10:50 Pre-Op Diagnosis: Right Internal Carotid Artery Stenosis Post-Op Diagnosis: Right Internal Carotid Artery Stenosis I identified the patient and participated in the time-out.: Yes Procedure Operation Date: 05/25/22 10:50 Actual Procedures p Right Transcarotid Artery Revascularization(Right), ultrasound localization of left common femoral vein - Jose Alfredo Silverman MD Surgeon Jose Alfredo Silverman MD Bottom Sprayer Laurie,PAC Estimated Blood Loss 50 Findings Consistent with Post-Op Diagnosis Specimens none Anesthesia Type General Complications none Disposition Accompanied Patient To Recovery: No Disposition: Recovery Room Indications This is an 86y/o male with severe stenosis of his left internal carotid artery. TCAR was recommended. He elected to go ahead with the TCAR procedure rather than CEA. I have discussed the risks options and benefits of the procedure with the patient. The patient understands the risks options and benefits and agrees to the procedure. Description of Procedure The patient was taken to the operating room and placed in supine position. After general anesthesia was accomplished the groins and right side of the neck and chest were prepped and draped in a sterile manner. Timeout was performed and the patient was identified. A transverse incision was made just above the clavicle between the heads of the sternocleidomastoid. This is carried down to where the common carotid artery was identified. It was isolated. It was slung with umbilical tape. Next the U stitch was placed in the common carotid artery with a 6-0 Prolene suture. Patient was given 8000 heparin at that time. Ultrasound was then used to localize the left common femoral vein. The vein was patent and compressed easily. Under ultrasound guidance the left common femoral vein was punctured and the venous sheath was inserted. This was aspirated and flushed with heparinized saline. ACT at that time was greater than 250. Using micropuncture technique the common carotid artery was punctured. The micro sheath was inserted to 3 cm. Injection was then done showing the bifurcation. There was a significant lesion seen at the origin of the internal carotid artery on the right side. We then inserted the J-wire left and short of the lesion. The micro sheath was removed and the TCAR sheath was inserted. Once it was in place and held against the artery it was sutured to the chest wall and the incision edge. We then flushed the tubing appropriately. The venous return tubing was clamped onto the TCAR sheath. It was flushed through and then attached to the venous inflow sheath in the left groin. Sheath was checked for flow. After nicely cleared nicely. The common carotid artery was then clamped. Flow reversal was instituted. We inserted a 5.5 x 3 balloon backloaded on the wire. The wire was passed through the lesion into the petrous portion of the internal carotid. The 5.5 mm balloon was then advanced to the lesion. Lesion was then predilated with a 5.5 mm balloon. The balloon was removed. We then inserted the 9 x 30 stent. This was deployed across the lesion without difficulty. The catheter was removed. The carotid was allowed to go 2 minutes with flow reversal. Completion angiogram was done at that time which showed good results with the stent. Again we allowed 2 minutes of flow reversal to occur. After that was completed, the common carotid artery was unclamped. The venous return tubing was clamped and removed from the TCAR sheath. The blood was allowed to flow back into the venous system. Once this was completed the sheath was pulled from the groin and pressure was applied. The TCAR sheath was then removed and the 6-0 Prolene suture securely tied. Hemostasis was noted of the puncture site. Wound was irrigated with Ancef solution. Adequate hemostasis was obtained of the wound. Once this was noted the wound was closed in usual fashion using a 3-0 Vicryl suture for the subcutaneous layer and a 4-0 subcuticular Vicryl suture for the skin edges. Dermabond was used for dressing.The patient left the operation room in satisfactory condition and tolerated the procedure well. All needle and sponge counts were correct at the end of the procedure. Annia Benjamin Pac assisted due to lack of resident availability and was necessary for positioning, draping, retraction, wound closure deep layers, subcutaneous tissue, and skin closure and was necessary for assisting with the case. I attest to the content of the Intraoperative Record and any orders documented therein. Any exceptions are noted below.
== END 2022-05-26 13:08 | disposition home or self-care (01) | DRG 36 ==
LOC: ASU 08:38 → PACUINP 10:25 → 1E 14:59 → 2W 05-26 09:59
PROC: EV.TCAR (2022-05-25 10:50)
DX: H53.8 Other visual disturbances; I10 Essential (primary) hypertension; I69.991 Dysphagia following unspecified cerebrovascular disease; Z95.5 Presence of coronary angioplasty implant and graft; I65.21 Occlusion and stenosis of right carotid artery; Z79.02 Long term (current) use of antithrombotics/antiplatelets; E78.5 Hyperlipidemia, unspecified; I25.10 Atherosclerotic heart disease of native coronary artery without angina pectoris

== ENCOUNTER 2022-08-10 05:49 | Inpatient (IN) ==
--- NOTE | 2022-07-08 09:57 | Anesthesiology Consultation ---
Date of Service July 08, 2022 Assessment & Plan (1) Encounter for pre-operative examination: Chart Review Chart Review: Acceptable Risk for Surgery and Patient NOT seen in Pre Admission Testing Consults Requested none History Surgery Operation Date: 07/12/22 08:00 Proposed Procedures p Left Transcarotid Artery Revascularization - Jose Alfredo Silverman MD Height/Weight Height: 5 ft 7 in Weight: 78.925 kg Allergies Allergy/AdvReac Type Severity Reaction Status Date / Time No Known Allergies Allergy Verified 07/07/22 12:21 Medications Home Medications Medication Instructions Recorded Confirmed Last Taken clopidogrel 75 mg tablet (Plavix) 75 mg PO QAM 05/06/22 07/07/22 05/25/22 07:00 ramipril 10 mg capsule 10 mg PO QAM 05/06/22 07/07/22 05/24/22 08:00 oxycodone-acetaminophen 5 mg-325 1 tab PO Q8H PRN pain #10 tabs 05/26/22 07/07/22 Unknown mg tablet (Percocet) rosuvastatin 20 mg tablet (Crestor) 20 mg PO DAILY #90 tabs 06/04/22 07/07/22 Unknown Past Medical History Medical History Amaurosis fugax of right eye "Painless monocular vision loss to the right eye consistent with amaurosis fugax" per 04/07/22 neuro office visit note Bilateral carotid artery stenosis Per head/neck CTA (03/31/22), hemodynamically significant stenosis in the right internal carotid artery its origin. There is hemodynamically significant stenosis in the left common carotid artery at the carotid bulb. There is likely hemodynamically significant stenosis in the origin of the right vertebral artery. CAD (coronary artery disease) Stents x2 (approximately 2009) Dysphagia Food/solids - chronic (no recent changes) Hypertension Occipital stroke Summer 2021 (reason for upcoming surgery) Brain MRI reveals a small punctate infarct within the right occipital lobe, watershed between the right occipital and right MCA. Stenosis of carotid artery Right Trans carotid artery Revascularization- 05/2022 Past Family History Family History Other No family history of adverse response to anesthesia Past Surgical History Surgical History History of colonoscopy History of esophagogastroduodenoscopy (EGD) + foreign body removal History of heart artery stent Stents x2 (approximately 2009) Social History Smoking Status: Never smoker Do You Dip or Chew Tobacco: No Hx Alcohol Use: No Alcohol type: beer alcohol intake frequency: 0-2 drinks per day (1 beer/day) Hx Substance Use: No substance use type: does not use Lab Results Anesthesia Preop Results Results Anesthesia Widget: WBC 6.58 K/ul (4.8-10.8) 05/19/22 Hgb 15.6 g/dl (14.0-18.0) 05/19/22 Hct 47.3 % (40.1-51.0) 05/19/22 Plt 202 K/uL (130-400) 05/19/22 Na 140 mmol/L (136-145) 05/19/22 K 4.2 mmol/L (3.5-5.1) 05/19/22 Cl 109 mmol/L (98-107) H 05/19/22 CO2 25 mmol/L (21-32) 05/19/22 BUN 20 mg/dl (6-23) 05/19/22 Creat 1.03 mg/dl (0.6-1.4) 05/19/22 Glucose Level 104 mg/dl (70-99(Fasting)) H 05/19/22 POC Glucose 120 mg/dl (70-99) H 05/26/22 PT 11.1 Seconds (9.0-12.0) 05/19/22 PTT 29.3 Seconds (21.0-31.0) 05/19/22 INR 1.0 (0.9-1.1) 05/19/22 Testing Electrocardiogram Date: 05/19/22 Sinus bradycardia with sinus arrhythmia, rate 54 bpm Nonspecific T wave abnormality No previous ECGs available Confirmed by Andrei Lombardo ([id number]) on 05/20/2022 10:09:46 AM Chest X-Ray Date: 05/19/22 Findings: + NAD Echocardiogram Date: 04/02/22 Normal LV size and systolic function. EF 65-70%. Hypokinesis to akinesis of the mid anteroseptum. No LVH. Trace AR. Mild MR. Normal estimated RVSP. No prior study available for comparison.
[~2022-08-10 05:49] MED LIST changes: -ALBUMIN HUMAN 5% 12.5 GM/250 ML VIAL IV ONE; -LACTATED RINGER'S 1,000 ML IV SCH; +LR 15ML/HR IV SCH; +SODIUM CHLORIDE 0.9% 1000ML IV SCH; -SUGAMMADEX SODIUM 200 MG/2 ML VIAL IV ONE
[2022-08-10] MEDS ORDERED: CEFAZOLIN 2,000 MG/15 ML SYR IV SCH (06:00)
[2022-08-10] MEDS ORDERED: SODIUM CHLORIDE 0.9% 1000ML 1,000 ML IV SCH (06:00)
[2022-08-10] MEDS ORDERED: LR 15ML/HR IV SCH (06:00)
[2022-08-10 06:47] LABS: BUN Creatinine Ratio 18.7 (10-20); Calcium 8.9 mg/dl (8.5-10.1); Creatinine Clr Calc Pharmacy 45.5 ml/min; Est GFR (Non-African American) 62.1 ml/min; Potassium 3.7 mmol/L (3.5-5.1)
[2022-08-10] MEDS ORDERED: fentaNYL citrate 100 MCG/2 ML VIAL ONE ×2 (07:01→08:50)
[2022-08-10] MEDS ORDERED: ONDANSETRON INJ 2 MG/ML 2 ML VIAL ONE (07:01)
[2022-08-10] MEDS ORDERED: PROPOFOL IV EMULSION 10 MG/ML 20 ML VIAL IV ONE (07:01)
[2022-08-10] MEDS ORDERED: HEPARIN SOD (PORCINE) 1000 UNIT/ML ONE (07:04)
[2022-08-10] MEDS ORDERED: GELATIN SPONGE SZ 100 ONE (07:07)
[2022-08-10] MEDS ORDERED: THROMBIN FOR SOLN 20000 UNIT KIT ONE (07:07)
[2022-08-10] MEDS ORDERED: GLYCOPYRROLATE 0.2 MG/ML VIAL ONE (07:09)
[2022-08-10] MEDS ORDERED: ROCURONIUM BROMIDE 10 MG/ML 5 ML VIAL IV ONE (07:09)
[2022-08-10] MEDS ORDERED: SUGAMMADEX SODIUM 200 MG/2 ML VIAL IV ONE (07:11)
--- NOTE | 2022-08-10 07:19 | History & Physical Report ---
Date of Service August 10, 2022 Assessment & Plan (1) Stenosis of left internal carotid artery: Plan: Patient is admitted for a left TCAR procedure. I have discussed the risks options and benefits of the procedure with the patient. The patient understands the risks options and benefits and agrees to the procedure. History of Present Illness Chief Complaint: Left carotid stenosis Primary Care Provider: Huseyin Devine DO Mr. Gongora is a very pleasant 86-year-old male with history of hypertension, hyperlipidemia and CAD (status post 2 stents more than 10 years ago). He noticed a black curtain over his right eye. At that time, he did not have any weakness or numbness or slurred speech. He does still have this black curtain on the right eye and he can only the lower half of the visual field by the right eye. He was worked up for stroke which came back involved with this severe bilateral carotid artery disease the CTA that is worse on the right side. 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 He is on Plavix. He underwent an uneventful TCAR of the right side. He is now admitted for a TCAR of the left carotid. He is a non-smoker. He is extremely active and lives by himself. He denies shortness of breath, claudication or rest pain. He was positive for covid on a home test one month ago. Allergies Allergy/AdvReac Type Severity Reaction Status Date / Time No Known Allergies Allergy Verified 08/10/22 06:24 Home Medications Medication Instructions Recorded Confirmed Type oxycodone-acetaminophen 5 mg-325 1 tab PO Q8H PRN pain #10 tabs 05/26/22 08/10/22 Rx mg tablet (Percocet) clopidogrel 75 mg tablet (Plavix) 75 mg PO QAM #30 tabs 07/09/22 08/10/22 Rx ramipril 10 mg capsule 10 mg PO QAM #30 caps 07/09/22 08/10/22 Rx aspirin 81 mg tablet 81 mg PO QAM 08/02/22 08/10/22 History simvastatin 80 mg tablet 80 mg PO QAM 08/02/22 08/10/22 History Past Med/Surg History Medical History Amaurosis fugax of right eye "Painless monocular vision loss to the right eye consistent with amaurosis fugax" per 04/07/22 neuro office visit note Bilateral carotid artery stenosis Per head/neck CTA (03/31/22), hemodynamically significant stenosis in the right internal carotid artery its origin. There is hemodynamically significant stenosis in the left common carotid artery at the carotid bulb. There is likely hemodynamically significant stenosis in the origin of the right vertebral artery. CAD (coronary artery disease) Stents x2 (approximately 2009) Dysphagia Food/solids - chronic (no recent changes) History of COVID-19 07/21/22[facility]- weakness, BALES, fatigue; resolved, no current issues Hypertension Occipital stroke Summer 2021 (reason for upcoming surgery) Brain MRI reveals a small punctate infarct within the right occipital lobe, watershed between the right occipital and right MCA. Stenosis of carotid artery Right Trans carotid artery Revascularization- 05/2022 Surgical History History of colonoscopy History of esophagogastroduodenoscopy (EGD) + foreign body removal History of heart artery stent Stents x2 (approximately 2009) Family History Other No family history of adverse response to anesthesia Social History Smoking Status: Unknown if ever smoked Second Hand Exposure: No; Do You Dip or Chew Tobacco: No; Tobacco Cessation Education Requested by Patient: No Hx Alcohol Use: Yes Alcohol type: beer Alcohol Intake Frequency Comment: 1 beer a day Hx Substance Use: No Preferred Language: Upper Sorbian Communication Ability: Effective Visual Impairment: Limited Hearing Ability: Use of Hearing Aid Hot Mix Operator Required: No Beliefs That Will Affect Care: None marital status: Single Current Living Situation: Alone current occupational status: retired How many Children do You have: 1 Other Information That Helps Us Care for You: No Feels Safe at Home: Yes Safety Concerns: Feels Safe At This Time Assistive Devices: Other Review of Systems All systems reviewed & are unremarkable except as noted in HPI & below Physical Exam Constitutional: WD/WN, vitals as above Eyes: PERRL, conjunctivae normal, anicteric sclerae Neck: trachea midline Respiratory: normal respiratory effort, lungs clear to auscultation Cardiovascular: RRR, no murmur, no edema Vessels: normal peripheral pulses Extremities: normal capillary refill Gastrointestinal (Abdomen): normal bowel sounds, soft, nontender, no hepatosplenomegaly Musculoskeletal: no cyanosis or clubbing, extremities motor strength 5/5 Skin: + incision (well healed right neck incision) Neurologic: CN's II-XI intact bilaterally, normal sensation to monofilament and moves all extremities Psychiatric: Orientation: alert and oriented x 3 Results & Data ([facility]) Vital Signs (Past 12 Hours) Vital Signs Temp Pulse Resp BP Pulse Ox O2 Del Method 08/10/22 06:27 36.5 C 62 18 142/98 H 98 Room Air
[2022-08-10] MEDS ORDERED: ePHEDrine sulfate 50 MG/ML AMP IV PRN (07:23)
[2022-08-10] MEDS ORDERED: ONDANSETRON INJ 2 MG/ML 2 ML VIAL IV PRN ×2 (07:23→11:45)
[2022-08-10] MEDS ORDERED: ATROPINE SULFATE 0.1 MG/ML 10ML SYR IV PRN (07:23)
[2022-08-10] MEDS ORDERED: fentaNYL citrate 100 MCG/2 ML VIAL IV PRN (07:23)
[2022-08-10] MEDS ORDERED: DEXAMETHASONE SOD INJ 4 MG/ML VIAL ONE (08:53)
[2022-08-10] MEDS ORDERED: ePHEDrine sulfate 50 MG/ML SYR ONE (09:25)
[2022-08-10] MEDS ORDERED: PHENYLEPHRINE HCL 10 MG/ML VIAL ONE (09:25)
[2022-08-10] MEDS ORDERED: LABETALOL HCL IV 5 MG/ML 20ML IV ONE ×4 (09:28→09:59)
[2022-08-10] MEDS ORDERED: PROTAMINE SULFATE 10 MG/ML 5 ML VIAL IV ONE (09:33)
[2022-08-10] MEDS ORDERED: VISIPAQUE IV ONE (09:34)
[2022-08-10] MEDS ORDERED: LARYING-O-JET KIT (LTA) ONE (10:05)
--- NOTE | 2022-08-10 10:09 | Post Operative Brief Note ---
Immediate Post Op Note v1 Date of Surgery August 10, 2022 Pre & Post Diagnosis Operation Date: 07/12/22 08:00 <No data on this case meets the specified criteria> Operation Date: 08/10/22 08:00 Pre-Op Diagnosis: Left Internal Carotid Artery Stenosis Post-Op Diagnosis: Left Internal Carotid Artery Stenosis I identified the patient and participated in the time-out.: Yes Procedure Operation Date: 07/12/22 08:00 <No data on this case meets the specified criteria> Operation Date: 08/10/22 08:00 Actual Procedures p Left Transthoracic Artery Revascularization(Left), ultrasound right femoral vein - Jose Alfredo Silverman MD Surgeon Jose Alfredo Silverman MD Cash Van Salesperson MD Gillian Estimated Blood Loss 30 Findings Consistent with Post-Op Diagnosis Anesthesia Type General Complications none Disposition Accompanied Patient To Recovery: No Disposition: Recovery Room
--- NOTE | 2022-08-10 10:27 | Procedure Note ---
Angiogram Post Procedure Fluoroscopy Time (minutes): 4.7 Radiation (mGy): 27 Contrast: 10mL Post Operative Report Pre & Post Diagnosis Operation Date: 07/12/22 08:00 <No data on this case meets the specified criteria> Operation Date: 08/10/22 08:00 Pre-Op Diagnosis: Left Internal Carotid Artery Stenosis Post-Op Diagnosis: Left Internal Carotid Artery Stenosis I identified the patient and participated in the time-out.: Yes Procedure Operation Date: 07/12/22 08:00 <No data on this case meets the specified criteria> Operation Date: 08/10/22 08:00 Actual Procedures p Left Transthoracic Artery Revascularization(Left) - Jose Alfredo Silverman MD Surgeon Jose Alfredo Silverman MD Form Tamper MD Gillian Estimated Blood Loss 30 Findings See Below At end of case patent Left CCA into ICA stent Specimens none Anesthesia Type General Complications none Disposition Accompanied Patient To Recovery: No Disposition: Recovery Room Indications asymptomatic left ICA stenosis Description of Procedure Patient was brought to the operating room and placed on the operating table in supine position. General anesthesia induced and a ET tube placed. An a- line was placed. A surgical timeout was performed to identify patient, procedure site, indications, and allergies. The patient's head was the turned to the right and the ET tube was secured to the right. The patient's left neck and bilateral groins were prepped and draped in a sterile manner. The patient had a 8cm transverse incision just above the left clavicle using a 10 blade. Using sharp and blunt dissection as well as Bovie electrocautery the subcutaneous tissue and the platysma muscle was incised transversely. The two heads of the SCM were vertically and the common carotid artery was identified. The vagus nerve was also identified. An umbilical tape was placed under the common carotid. A 5-0 Prolene stitch in a u fashion was placed in the common carotid artery. This was secured in place on a shod. At this time 7000U of heparin was given to the patient. After 2-3 minutes an ACT was obtained which was >300. Under ultrasound guidance the right common femoral vein was accessed with an 18 gauge needle and a J wire was inserted. Then the needle was exchanged for an 8 cuban sheath and the sheath was secured to the skin with a silk suture. A TCAR time out was performed and the patient had been previously treated with glycopyrrolate. The micropuncture system was used to access the common carotid, the dilator and wire were removed and a cerebral angiogram was performed. This demonstrated a stenosis of the distal CCA into the bifurcation. Then the stiff J wire was inserted. The TCAR sheath was exchanged for the micropuncture sheath. The TCAR sheath was secured to the skin using multiple silk sutures. After the J wire and dilator were removed. The flow reversal system was connected between the arterial sheath in left common carotid and the right common femoral vein. The left common carotid artery was clamped using a profunda clamp. Reversal of flow was confirmed using saline flushes following clamping of the common carotid. Using the monorail system a 5x30 balloon was placed across the common into internal bifurcation and was used to predilate the lesion. The balloon was taken to nominal pressure. Then the balloon was exchanged for a 9x40 stent which was deployed across the left internal carotid into the left common carotid. There was residual stenosis of the stent therefore a 5.5x30 balloon was used to postdilate the distal portion of the stent which improved the stenosis. After waiting 2 minutes of reversal of blood flow following stent manipulation cerebral angiogram were performed in 2 projections with demonstrated patent stent and no signs of dissection or thrombosis. The wire access was removed. The common carotid artery was unclamped for a total of 12 minutes clamp time. The flow reversal system was disconnected and the blood was returned to the patient. The U stitch was tied as the sheath was removed from the common carotid artery. Hemostasis of the access site was obtained using Surgicel. The patient was given protamine at this time. After 2-3 minutes an ACT was obtained which was <150. The venous sheath was removed and pressure was held to obtain hemostasis. In the neck various muscle and subcutaneous oozing was controlled using Bovie electrocautery. The subcutaneous tissue was closed using a 3-0 Vicryl and the skin was closed using a 4-0 Vicryl. Then Dermabond was applied. The patient was awoken from general anesthesia was was able to move all limbs. The patient was taken to the PACU for recovery. Dr. Silverman was present and scrubbed for the entire procedure. I attest to the content of the Intraoperative Record and any orders documented therein. Any exceptions are noted below.
[2022-08-10] MEDS ORDERED: oxyCODONE/ACETAMINOPHEN 5mg/325mg TAB PO PRN (11:45)
[2022-08-10] MEDS ORDERED: NITROGLYCERIN/D5W 100 MCG/ML BTL ONE (11:50)
[2022-08-10] MEDS ORDERED: STAT IV Infusion **Titration per Protocol STA (11:55)
[2022-08-10] MEDS ORDERED: NITROGLYCERIN/D5W 100MCG/ML 250 ML IV SCH (12:00)
--- NOTE | 2022-08-10 12:12 | Critical Care Consultation ---
Date of Consultation August 10, 2022 Assessment & Plan (1) Stenosis of left internal carotid artery: (2) Hypertension: (3) CAD (coronary artery disease): Plan 2D echo 08/04/2022: EF 60-65%, grade 1 diastolic dysfunction, mild concentric LVH -- Left coronary artery stenosis S/p TCAR 08/10/[address] Silverman Patient does have some swelling around the incision site Continue with neurochecks as per protocol -- Hypertension Resume home ramipril -- Dyslipidemia Continue with simvastatin --History of coronary artery S/p approximately 2011 --COVID-positive Initial COVID test was 07/20/2022 Patient is asymptomatic He is beyond 21 days. Does not need to be on isolation Plan: Repeat CBC stat Monitor H&H Look for any compromise when it comes to patient's airway, no tracheal deviation yet. Dr. Silverman has been made aware Nicardipine has been started as per vascular surgery recommendation to keep systolic blood pressure less than 140 Please note the above document was generated using voice recognition software. It may contain grammatical, syntax or spelling errors.Any formal questions or concerns about the content, text or information contained within the body of this dictation should be directly addressed to the provider for clarification. History of Present Illness Attending Physician: Jose Alfredo Silverman MD History of Present Illness 86-year-old male presented to the hospital for left-sided carotid stenosis work- up Past medical history: Coronary artery disease s/p stents back in 2011 approximately, hypertension, dyslipidemia Patient is here for ICU s/p TCAR At the time of examination Patient was found to have swelling on the left neck, trachea was still midline He denied any chills with breathing or swallowing. No headache, no nausea or vomiting, no blurry vision No abdominal pain. Patient's systolic blood pressure was 154 at the time of examination with heart rate in the high 50s. Allergies Allergy/AdvReac Type Severity Reaction Status Date / Time No Known Allergies Allergy Verified 08/10/22 06:24 Home Medications Medication Instructions Recorded Confirmed Type oxycodone-acetaminophen 5 mg-325 1 tab PO Q8H PRN pain #10 tabs 05/26/22 08/10/22 Rx mg tablet (Percocet) clopidogrel 75 mg tablet (Plavix) 75 mg PO QAM #30 tabs 07/09/22 08/10/22 Rx ramipril 10 mg capsule 10 mg PO QAM #30 caps 07/09/22 08/10/22 Rx aspirin 81 mg tablet 81 mg PO QAM 08/02/22 08/10/22 History simvastatin 80 mg tablet 80 mg PO QAM 08/02/22 08/10/22 History Patient History Medical History Amaurosis fugax of right eye "Painless monocular vision loss to the right eye consistent with amaurosis fugax" per 04/07/22 neuro office visit note Bilateral carotid artery stenosis Per head/neck CTA (03/31/22), hemodynamically significant stenosis in the right internal carotid artery its origin. There is hemodynamically significant stenosis in the left common carotid artery at the carotid bulb. There is likely hemodynamically significant stenosis in the origin of the right vertebral artery. CAD (coronary artery disease) Stents x2 (approximately 2009) Dysphagia Food/solids - chronic (no recent changes) History of COVID-07/21/22-[facility], [place]- weakness, BALES, fatigue; resolved, no current issues Hypertension Occipital stroke Summer 2021 (reason for upcoming surgery) Brain MRI reveals a small punctate infarct within the right occipital lobe, watershed between the right occipital and right MCA. Stenosis of carotid artery Right Trans carotid artery Revascularization- 05/2022 Surgical History History of colonoscopy History of esophagogastroduodenoscopy (EGD) + foreign body removal History of heart artery stent Stents x2 (approximately 2009) Family History Other No family history of adverse response to anesthesia Social History Smoking Status: Unknown if ever smoked Second Hand Exposure: No; Do You Dip or Chew Tobacco: No; Tobacco Cessation Education Requested by Patient: No Hx Alcohol Use: Yes Alcohol type: beer Alcohol Intake Frequency Comment: 1 beer a day Hx Substance Use: No Preferred Language: Vietnamese Communication Ability: Effective Visual Impairment: Limited Hearing Ability: Use of Hearing Aid Lead Housekeeper Required: No Beliefs That Will Affect Care: None marital status: Single Current Living Situation: Alone current occupational status: retired How many Children do You have: 1 Other Information That Helps Us Care for You: No Feels Safe at Home: Yes Safety Concerns: Feels Safe At This Time Assistive Devices: Other Review of Systems Review of Systems: All systems reviewed & are unremarkable except as noted in HPI & below Physical Exam Physical Exam: Constitutional: No acute distress HEENT: EOMI, PERRLA, soft swelling appreciated on the left incision site, no stridor Respiratory system: Good air entry bilaterally, no wheeze, no rhonchi, mild crackles bilateral lower lobes CVS: S1-S2 positive, no murmurs or gallops, bradycardia Abdomen: Soft, nontender, nondistended, positive bowel sounds x4 Extremities: +2 pulses bilaterally radialis/ dorsalis pedis, no cyanosis, no edema Neuro: Awake alert oriented x3 Psych: Normal mood and affect G/U: No Plunkett Skin: no rashes, warm and dry Lymphatic: no cervical or axillary lymphadenopathy Results & Data Results & Data ([facility]) Vital Signs (Past 12 Hours) Vital Signs Temp Pulse Resp BP BP Pulse Ox O2 Del Method 08/10/22 11:05 58 L 16 152/82 H 100 Nasal Cannula 08/10/22 10:55 36.2 C L 62 16 154/70 H 100 Nasal Cannula 08/10/22 10:45 63 18 154/69 H 99 Oxymask 08/10/22 10:35 65 18 157/71 H 96 Oxymask 08/10/22 10:25 36.0 C L 65 18 99 Oxymask 08/10/22 06:27 36.5 C 62 18 142/98 H 98 Room Air O2 Flow Rate 08/10/22 11:05 2 08/10/22 10:55 2 08/10/22 10:45 5 08/10/22 10:35 5 08/10/22 10:25 5 08/10/22 06:27 Laboratory Results 08/10/22 06:14 Coding Level of Care Code 61964 Inpt Consult Level 4 Diagnoses Stenosis of left internal carotid artery I65.22 Hypertension I10 CAD (coronary artery disease) I25.10
[2022-08-10 12:44] LABS: Hematocrit (blood only) 42.9 % (40.1-51.0); Hemoglobin 14.8 g/dl (14.0-18.0); Mean Corpuscular Hemoglobin 32.9 pg (25.0-34.0); Mean Corpuscular Hgb Conc 34.5 g/dL (32.0-36.0); Mean Corpuscular Volume 95.3 fL (80.0-100.0); Mean Platelet Volume 9.2 fL (9.4-12.4); Platelet Count 184 K/uL (130-400); RDW Coefficient of Variation 12.9 % (11.5-14.5); RDW Standard Deviation 45.1 fL (36.4-46.3); White Blood Count 11.86 K/ul (4.8-10.8)
[2022-08-10] MEDS: LACTATED RINGER'S 1,000 ML IV SCH ×2 (13:15→23:45)
--- NOTE | 2022-08-10 15:22 | Anesthesiology Progress Note ---
Date of Service August 10, 2022 Anesthesia Post Procedure Vital Signs Vital Signs: Temp Pulse Pulse Resp BP BP BP 08/10/22 13:30 125/66 08/10/22 13:29 70 19 08/10/22 13:15 62 19 08/10/22 13:15 153/71 H 08/10/22 13:00 67 16 08/10/22 13:00 139/77 08/10/22 12:45 58 L 15 08/10/22 12:45 139/79 08/10/22 12:34 60 14 08/10/22 12:33 35.5 C L 08/10/22 11:05 58 L 16 152/82 H 08/10/22 10:55 36.2 C L 62 16 154/70 H 08/10/22 10:45 63 18 154/69 H 08/10/22 10:35 65 18 157/71 H 08/10/22 10:25 36.0 C L 65 18 08/10/22 06:27 36.5 C 62 18 142/98 H Pulse Ox O2 Del Method O2 Flow Rate 08/10/22 13:30 08/10/22 13:29 94 Room Air 08/10/22 13:15 99 08/10/22 13:15 08/10/22 13:00 96 08/10/22 13:00 08/10/22 12:45 97 Room Air 08/10/22 12:45 08/10/22 12:34 97 08/10/22 12:33 08/10/22 11:05 100 Nasal Cannula 2 08/10/22 10:55 100 Nasal Cannula 2 08/10/22 10:45 99 Oxymask 5 08/10/22 10:35 96 Oxymask 5 08/10/22 10:25 99 Oxymask 5 08/10/22 06:27 98 Room Air Transfer of Care Handoff Completed per policy Notes Mental Status: alert / awake / arousable Patient Amnestic to Procedure: Yes Nausea / Vomiting: adequately controlled Pain: adequately controlled Airway Patency, RR, SpO2: stable & adequate BP & HR: stable & adequate Hydration State: stable & adequate Anesthetic Complications: no major complications apparent Notes: neurologically intact at pacu discharge
[2022-08-10] MEDS: ceFAZolin 2000MG 2,000 MG/15 ML SYR IV SCH (18:44)
[2022-08-11] MEDS: ceFAZolin 2000MG 2,000 MG/15 ML SYR IV SCH (01:00)
[2022-08-11] MEDS: LACTATED RINGER'S 1,000 ML IV SCH (06:08)
--- NOTE | 2022-08-11 07:34 | Critical Care Progress Note ---
Date of Service August 11, 2022 Assessment & Plan (1) Stenosis of left internal carotid artery: (2) Hypertension: (3) CAD (coronary artery disease): (4) Urinary retention: Plan 2D echo 08/04/2022: EF 60-65%, grade 1 diastolic dysfunction, mild concentric LVH -- Left coronary artery stenosis S/p TCAR 08/10/[address] Silverman Patient does have some swelling around the incision site Continue with neurochecks as per protocol -- Urinary retention Patient to have Plunkett placed and will be discharged home with Plunkett Outpatient follow-up with urology Tamsulosin will be started -- Hypertension Resume home ramipril -- Dyslipidemia Continue with simvastatin --History of coronary artery S/p approximately 2011 --COVID-positive Initial COVID test was 07/20/2022 Patient is asymptomatic He is beyond 21 days. Does not need to be on isolation Plan: In/out: +1.2 L, urine output 1075 Flomax to be started today, Plunkett catheter to be inserted and patient will fo llow up with urology as an outpatient Patient hemodynamically stable Disposition as per vascular surgery Please note the above document was generated using voice recognition software. It may contain grammatical, syntax or spelling errors.Any formal questions or concerns about the content, text or information contained within the body of this dictation should be directly addressed to the provider for clarification. Admission and Anticipated Discharge Date Admission Date: August 10, 2022 Subjective Patient seen and examined at bedside. No acute distress, no adverse events overnight. He was having difficulty urinating. He was straight cathed x2. He did have spontaneous urination early in the morning about 150 mL. Denies any headache, no nausea vomiting Fair appetite. No shortness of breath, no chest pain Review of Systems Review of Systems: All systems reviewed & are unremarkable except as noted in Subjective Physical Exam Physical Exam: Constitutional: No acute distress HEENT: EOMI, PERRLA, left incision site clean, swelling has gone down, no stridor Respiratory system: Good air entry bilaterally, no wheeze, no rhonchi, mild crackles bilateral lower lobes CVS: S1-S2 positive, no murmurs or gallops, bradycardia Abdomen: Soft, nontender, nondistended, positive bowel sounds x4 Extremities: +2 pulses bilaterally radialis/ dorsalis pedis, no cyanosis, no edema Neuro: Awake alert oriented x3 Psych: Normal mood and affect G/U: No Plunkett Skin: no rashes, warm and dry Lymphatic: no cervical or axillary lymphadenopathy Results & Data Results & Data ([facility]) Vital Signs (Past 12 Hours) Vital Signs Temp Pulse Resp BP Pulse Ox 08/11/22 06:10 52 L 8 L 96 08/11/22 06:00 54 L 16 95 08/11/22 06:00 128/56 L 08/11/22 05:50 56 L 17 96 08/11/22 05:40 50 L 9 L 96 08/11/22 05:30 55 L 7 L 97 08/11/22 05:20 54 L 14 97 08/11/22 05:10 51 L 16 96 08/11/22 05:01 76 17 87 L 08/11/22 05:01 128/54 L 08/11/22 05:00 57 L 15 92 08/11/22 04:50 55 L 17 95 08/11/22 04:40 53 L 0 L 95 08/11/22 04:30 58 L 17 95 08/11/22 04:20 56 L 16 96 08/11/22 04:10 60 16 95 08/11/22 04:01 152/70 H 08/11/22 04:01 64 14 94 08/11/22 04:00 69 15 96 08/11/22 03:50 65 22 95 08/11/22 03:41 76 5 L 96 08/11/22 03:30 69 17 95 08/11/22 03:20 58 L 24 94 08/11/22 03:10 58 L 18 91 08/11/22 03:00 55 L 8 L 95 08/11/22 03:00 110/54 L 08/11/22 02:00 65 14 95 08/11/22 01:01 65 12 95 08/11/22 01:01 128/75 08/11/22 01:00 73 17 92 08/11/22 03:57 36.8 C 08/11/22 00:00 60 08/11/22 00:01 133/66 08/11/22 00:01 67 19 89 L 08/11/22 00:00 58 L 18 95 08/10/22 23:50 54 L 17 94 11/29/22 23:40 62 18 95 08/10/22 23:30 56 L 17 95 08/10/22 23:20 61 17 95 08/10/22 23:10 75 14 95 08/10/22 23:00 60 19 94 08/10/22 23:00 130/55 L 08/10/22 22:50 62 18 94 08/10/22 22:40 61 20 95 08/10/22 22:30 61 17 94 08/10/22 22:20 66 18 95 08/10/22 22:10 64 18 95 08/10/22 22:00 84 20 96 08/10/22 22:00 146/65 H 08/10/22 21:50 74 26 H 96 08/11/22 00:00 36.7 C 08/10/22 21:44 97 08/10/22 21:30 68 22 97 08/10/22 21:21 78 14 08/10/22 21:01 120/86 08/10/22 21:01 20 84 L 08/10/22 21:00 72 25 H 94 08/10/22 20:50 65 20 93 08/10/22 20:40 64 21 93 08/10/22 20:30 64 20 93 08/10/22 20:20 76 19 93 08/10/22 20:10 68 20 94 08/10/22 20:01 125/60 08/10/22 20:01 74 17 92 08/10/22 20:00 74 21 95 08/10/22 19:50 70 17 94 08/10/22 19:40 68 18 94 08/10/22 21:00 36.6 C Laboratory Results 08/10/22 12:09 08/10/22 06:14 Coding Level of Care Code 03237 Subseq Hosp Care Lvl 2 Diagnoses Stenosis of left internal carotid artery I65.22 Hypertension I10 CAD (coronary artery disease) I25.10 Urinary retention R33.9
[2022-08-11] MEDS ORDERED: TAMSULOSIN HCL 0.4 MG CAP PO ONE (07:48)
--- NOTE | 2022-08-11 08:02 | Surgery Progress Note ---
Date of Service August 11, 2022 Assessment & Plan (1) Stenosis of left internal carotid artery: Plan: Doing well post TCAR. Can d/c today. (2) Urinary retention: Plan: Discussed with urology. Will place saini with leg bag. Will start on flomax and d/c today. Will be seen by urology in one week. Admission and Anticipated Discharge Date Admission Date: August 10, 2022 Subjective No complaints other than unable to urinate. Physical Exam Constitutional: WD/WN, vitals as above Neck: trachea midline Respiratory: normal respiratory effort; no respiratory distress Cardiovascular: Rate/Rhythm: regular rate and regular rhythm Skin: + incision (dry and clean) Neurologic: CN's II-XI intact bilaterally and moves all extremities Psychiatric: Orientation: alert and oriented x 3 Results & Data ([facility]) Vital Signs (Past 12 Hours) Vital Signs Temp Pulse Resp BP Pulse Ox 08/11/22 06:10 52 L 8 L 96 08/11/22 06:00 54 L 16 95 08/11/22 06:00 128/56 L 08/11/22 05:50 56 L 17 96 08/11/22 05:40 50 L 9 L 96 08/11/22 05:30 55 L 7 L 97 08/11/22 05:20 54 L 14 97 08/11/22 05:10 51 L 16 96 08/11/22 05:01 76 17 87 L 08/11/22 05:01 128/54 L 08/11/22 05:00 57 L 15 92 08/11/22 04:50 55 L 17 95 08/11/22 04:40 53 L 0 L 95 08/11/22 04:30 58 L 17 95 08/11/22 04:20 56 L 16 96 08/11/22 04:10 60 16 95 08/11/22 04:01 152/70 H 08/11/22 04:01 64 14 94 08/11/22 04:00 69 15 96 08/11/22 03:50 65 22 95 08/11/22 03:41 76 5 L 96 08/11/22 03:30 69 17 95 08/11/22 03:20 58 L 24 94 08/11/22 03:10 58 L 18 91 08/11/22 03:00 55 L 8 L 95 08/11/22 03:00 110/54 L 08/11/22 02:00 65 14 95 08/11/22 01:01 65 12 95 08/11/22 01:01 128/75 08/11/22 01:00 73 17 92 08/11/22 03:57 36.8 C 08/11/22 00:00 60 08/11/22 00:01 133/66 08/11/22 00:01 67 19 89 L 08/11/22 00:00 58 L 18 95 08/10/22 23:50 54 L 17 94 08/10/22 23:40 62 18 95 08/10/22 23:30 56 L 17 95 08/10/22 23:20 61 17 95 08/10/22 23:10 75 14 95 08/10/22 23:00 60 19 94 08/10/22 23:00 130/55 L 08/10/22 22:50 62 18 94 08/10/22 22:40 61 20 95 08/10/22 22:30 61 17 94 08/10/22 22:20 66 18 95 08/10/22 22:10 64 18 95 08/10/22 22:00 84 20 96 08/10/22 22:00 146/65 H 08/10/22 21:50 74 26 H 96 08/11/22 00:00 36.7 C 08/10/22 21:44 97 08/10/22 21:30 68 22 97 08/10/22 21:21 78 14 08/10/22 21:01 120/86 08/10/22 21:01 20 84 L 08/10/22 21:00 72 25 H 94 08/10/22 20:50 65 20 93 08/10/22 20:40 64 21 93 08/10/22 20:30 64 20 93 08/10/22 20:20 76 19 93 08/10/22 20:10 68 20 94 08/10/22 20:01 125/60 08/10/22 20:01 74 17 92 08/10/22 20:00 74 21 95 08/10/22 21:00 36.6 C
[2022-08-11] MEDS ORDERED: SIMVASTATIN 80 MG TAB PO SCH (09:00)
[2022-08-11] MEDS ORDERED: CLOPIDOGREL BISULFATE 75 MG TAB PO SCH (09:00)
[2022-08-11] MEDS ORDERED: ASPIRIN 81 MG ECTAB PO SCH (09:00)
[2022-08-11] MEDS ORDERED: ENALAPRIL MALEATE 10 MG TAB PO SCH (09:00)
--- NOTE | 2022-08-16 12:05 | Discharge Summary ---
Date of Service August 16, 2022 Admission HPI Per Admitting Provider Mr. Gongora is a very pleasant 86-year-old male with history of hypertension, hyperlipidemia and CAD (status post 2 stents more than 10 years ago). He noticed a black curtain over his right eye. At that time, he did not have any weakness or numbness or slurred speech. He does still have this black curtain on the right eye and he can only the lower half of the visual field by the right eye. He was worked up for stroke which came back involved with this severe bilateral carotid artery disease the CTA that is worse on the right side. 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 He is on Plavix. He underwent an uneventful TCAR of the right side. He is now admitted for a TCAR of the left carotid. He is a non-smoker. He is extremely active and lives by himself. He denies shortness of breath, claudication or rest pain. He was positive for covid on a home test one month ago. Admission Exam Per Admitting Provider Constitutional: WD/WN, vitals as above Eyes: PERRL, conjunctivae normal, anicteric sclerae Neck: trachea midline Respiratory: normal respiratory effort, lungs clear to auscultation Cardiovascular: RRR, no murmur, no edema Vessels: normal peripheral pulses Extremities: normal capillary refill Gastrointestinal (Abdomen): normal bowel sounds, soft, nontender, no hepatosplenomegaly Musculoskeletal: no cyanosis or clubbing, extremities motor strength 5/5 Skin: + incision (well healed right neck incis ion) Neurologic: CN's II-XI intact bilaterally, normal sensation to monofilament and moves all extremities Psychiatric: Orientation: alert and oriented x 3 Principal Diagnosis Left internal carotid artery stenosis Discharge Exam Constitutional WD/WN, vitals as above Eyes PERRL, conjunctivae normal, anicteric sclerae Neck trachea midline Respiratory normal respiratory effort, lungs clear to auscultation normal respiratory effort; no respiratory distress Cardiovascular RRR, no murmur, no edema Rate/Rhythm: regular rate and regular rhythm Vessels: normal peripheral pulses Extremities: normal capillary refill Gastrointestinal (Abdomen) normal bowel sounds, soft, nontender, no hepatosplenomegaly Musculoskeletal no cyanosis or clubbing, extremities motor strength 5/5 Skin + incision (dry and clean) Neurologic CN's II-XI intact bilaterally, normal sensation to monofilament and moves all extremities Psychiatric Orientation: alert and oriented x 3 Discharge Data Allergies Allergy/AdvReac Type Severity Reaction Status Date / Time No Known Allergies Allergy Verified 08/10/22 06:24 Consultations 08/10/22 10:18 Consult Gluing Machine Adjuster Stat Procedures Performed Operation Date: 07/12/22 08:00 <No data on this case meets the specified criteria> Operation Date: 08/10/22 08:00 Actual Procedures p Left Transthoracic Artery Revascularization(Left) - Jose Alfredo Silverman MD Ordered Studies 08/10/22 07:11 EV angio carotid external LT Routine US EV guide vascular access Routine Hospital Course (1) Stenosis of left internal carotid artery: Doing well post TCAR. Can d/c today. (2) Urinary retention: Discussed with urology. Will place saini with leg bag. Will start on flomax and d/c today. Will be seen by urology in one week. Total Time Total Time Spent Total Time Spent (In Minutes): 0 Discharge Plan Discharge Items Patient Disposition: Home - Self-Care Reason For Visit: Left Internal Carotid Artery Stenosis Discharge Diagnosis: Left carotid stenosis, Post TCAR Activity: Per Instructions section Non-emergency contact: Surgeon Call non-emergency contact if: your temperature is above 101.5, your wound has increased redness, your wound has increased drainage and your wound pain has increased Follow-up/Referrals: Ivan Ibrahim MD [Physician] - 08/18/22 10:30 am (urinary retention with saini and leg bag) Huseyin Devine DO [Primary Care Provider] - 08/17/22 11:15 am Jose Alfredo Silverman MD [Physician] - 08/26/22 12:45 pm (Call [phone] to schedule a follow up appointment) Diet: Heart Healthy Addtl Attending Provider Instructions: SPECIAL CARE INSTRUCTIONS: Medications: * Continue to take Aspirin and plavix and statin for one month none stop as directed. Incision Care: * You may shower, but do not rub incision. You may let the warm soapy water run over it. Be sure to dry the incision well after bathing. * Do not shave directly over the incision until it is healed. * DO NOT IMMERSE THE INCISION IN A TUB/POOL/etc. UNTIL HEALED. Restrictions: * Do not drive for at least one week or if you are still taking any narcotic pain medication. * Do not lift anything heavier than a gallon of milk for one week after going home. Possible Complications: * Numbness - It is normal to have some numbness around the incision. Numbness can extend beyond the incision to areas of the neck, ear and face. The numbness is due to bruising of nerves during the surgery and will gradually improve over a period of months. * Hoarseness/Difficulty Speaking and Swallowing - The bruising of nerves in the neck can also cause a hoarse voice, difficulty speaking or swallowing. This may improve over time, HOWEVER, if it continues for more than a few days please contact our office ([phone]). * Excessive Swelling - There will be some swelling immediately after surgery which usually resolves within one week. If you notice that the swelling is getting worse, notify your surgeon ([phone]). * Drainage/Bleeding - If there is any drainage or bleeding, it should be a very small amount (less than a teaspoon per day). If you have excessive bleeding or drainage from the incision, call your surgeon ([phone]) right away. ACTIVATION OF EMERGENCY MEDICAL SYSTEM: Call 911, immediately, if you experience any of the following: Warning Signs and Symptoms of Stroke: * Sudden numbness or weakness of the face, arm or leg, especially on one side of the body * Sudden confusion, trouble speaking or understanding * Sudden trouble seeing in one or both eyes * Sudden trouble walking, dizziness, loss of balance or coordination * Sudden severe headache with no cause Do not delay calling 911 if you experience any warning signs or symptoms of a stroke. Delay in seeking medical attention may affect what treatments can be given to you. Risk Factors for Stroke: You can reduce your chances of stroke by working with your medical provider to adopt a healthy lifestyle. Some specific ways to lower your chance of stroke are: * If you are a smoker, now is the time to stop smoking cigarettes * If you are diabetic, improve the control of your blood sugars * Avoid excessive amounts of alcohol * Control high blood pressure * Lose weight if you are overweight * Be sure to lead an active lifestyle * Eat a healthy diet low in salt, cholesterol and fat You should know about other risk factors for stroke that you are unable to control. These include: * Age 55 years or older * Male gender * Certain racial groups: , or / * Family History of Stroke, Mini stroke or Heart Attack * Sickle Cell Disease You will be receiving a call from the Vascular Surgery Nurse after you are discharged. FOLLOW UP VISIT: It is important for you to keep your follow up appointments with your medical provider. Keep any scheduled doctor appointments Call [phone] to schedule a follow up appointment if one not already scheduled.. Pending Studies at Discharge: No Stand-Alone Forms: [facility], Smoking Cessation Medications and DC Order Prescriptions: New tamsulosin [Flomax] 0.4 mg capsule 0.4 mg PO DAILY Qty: 30 0RF oxycodone-acetaminophen [Percocet] 5-325 mg tablet 1 tab PO Q8H PRN (Reason: pain) Qty: 10 0RF Continued clopidogrel [Plavix] 75 mg tablet 75 mg PO QAM Qty: 30 3RF oxycodone-acetaminophen [Percocet] 5-325 mg tablet 1 tab PO Q8H PRN (Reason: pain) Qty: 10 0RF aspirin 81 mg Tablet 81 mg PO QAM No Action ramipril 10 mg capsule 10 mg PO QAM Qty: 90 3RF simvastatin 80 mg tablet 80 mg PO QAM Qty: 90 3RF Discharge Orders: Discharge Order (Routine); Ordered 08/11/22 Ordered By: Jose Alfredo Ruby/Other Patient Handouts: ED Saini Catheter, Care, ED Urinary Retention, Male, Carotid Artery Disease Admission Data Admit Date/Time: 08/10/22 07:22 Attending Provider: Jose Alfredo Silverman Admit Provider: Jose Alfredo Silverman Primary Care Provider: Huseyin Devine Other Providers: Zeke Rice ; Huseyin Thomas ; Matheus Marcum ; Narayan Rosenberg ; Gage Butcher ; Miguel Carr ; Sergio Wilkerson ; Reg Lazcano ; Shae Garrett Other Interventions: Discharge Summary Assessment (RN) Last Done: 08/11/22 08:47
== END 2022-08-11 10:30 | disposition home or self-care (01) | DRG 36 ==
LOC: ASU 05:49 → 1E 11:30
PROC: EV.TCAR (2022-08-10 08:00)